=== PATIENT | female | born 1965 | race Caucasian/White ===

== ENCOUNTER 2016-09-24 11:51 | Emergency (ER) | payer OTHER ==
[~2016-09-24] VITALS: Ht 170.2 cm; Wt 72.1 kg
[2016-09-24] MEDS ORDERED: METOPROLOL TART25 MG PO (12:02)
[2016-09-24] MEDS ORDERED: ATORVASTATIN CA40 MG PO (12:02)
[2016-09-24] MEDS ORDERED: LORAZEPAM1 MG PO (12:02)
== END 2016-09-24 12:07 | disposition home or self-care (01) ==
LOC: ED 11:51
DX: Z00.8 Encounter for other general examination (principal)

== ENCOUNTER 2021-11-26 12:56 | Emergency (ER) | payer BC ==
[~2021-11-26] VITALS: Ht 170.2 cm; Wt 69.8 kg
[~2021-11-26 12:56] MED LIST: ATORVASTATIN CA40 MG PO; LORAZEPAM1 MG PO; METOPROLOL TART25 MG PO
--- NOTE | 2021-11-29 20:40 | EKG ---
[facility] [address] [place] [address] Signed Sinus tachycardia T wave abnormality, consider inferior ischemia Abnormal ECG No previous ECGs available Confirmed by Chery Mendes MD () on 11/29/2021 8:40:31 PM Electronically Signed By: CHERY MENDES MD 11/29/212039 PATIENT NAME: ANNI GAY Electrocardiogram DATE OF : 69 PHYSICIAN: CHERY MENDES MD REPORT #: [id number] REPORT IS CONFIDENTIAL AND NOT TO BE RELEASED WITHOUT AUTHORIZATION
== END 2021-11-26 16:37 | disposition home or self-care (01) ==
LOC: ED 12:56
DX: R07.2 Precordial pain (principal); I25.2 Old myocardial infarction; I10 Essential (primary) hypertension; F17.200 Nicotine dependence, unspecified, uncomplicated; Z88.8 Allergy status to other drugs, medicaments and biological substances; Z79.899 Other long term (current) drug therapy
CPT/HCPCS: 36415; 71045; 80053; 83735; 84484; 85025; 93005; 93010; 99285-25; A9270